=== PATIENT | female | born 1925 | race Caucasian/White ===

== ENCOUNTER 2016-11-20 12:37 | Outpatient (CLI) | payer MEDICARE, OTHER ==
[2015-08-21 12:58] VITALS: BP 150/79
== END 2016-11-20 12:47 ==
LOC: CARD 12:37
PROVIDERS: ATTEND Internal Medicine Cardiovascular Disease
DX: I25.10 Atherosclerotic heart disease of native coronary artery without angina pectoris (principal)
CPT/HCPCS: G0463

== ENCOUNTER 2017-01-03 15:46 | Outpatient (CLI) | payer MEDICARE, OTHER ==
[2015-08-21 12:58] VITALS: BP 150/79
[2017-01-03 16:11] LABS: BASOPHILS % 0.2 (0.0-1.5); EOSINOPHILS % 1.2 % (0.0-6.8); MEAN CORPUSCULAR HEMOGLOBIN 29.4 pg (28.0-34.0); NEUTROPHILS # 6.2 # k/uL (1.4-7.7)
[2017-01-03 16:31] LABS: eGFR (African) > 60; eGFR (Non-African) > 60
== END 2017-01-03 15:47 ==
LOC: LAB 15:46
PROVIDERS: ATTEND Family Medicine
DX: G45.9 Transient cerebral ischemic attack, unspecified (principal); I25.10 Atherosclerotic heart disease of native coronary artery without angina pectoris; R25.2 Cramp and spasm
CPT/HCPCS: 36415; 80053; 83735; 85025

== ENCOUNTER 2017-01-07 09:53 | Outpatient (CLI) | payer MEDICARE, OTHER ==
[2015-08-21 12:58] VITALS: BP 150/79
--- NOTE | 2017-01-07 13:58 | Diagnostic Imaging Report ---
[facility] [address] [facility] [address] [place], [place]. [address] Report Submission Date: Jan 07, 2017 11:10:57 AM CDT Patient Study Name: SHERIE RESTREPO Date: Jan 07, 2017 10:05:54 AM CDT Modality Type: CT\SR Gender: F Description: CT BRAIN W/O CONTRAST : [birth year] Institution: [facility] Physician DARLENE CURRY - OP Head CT without contrast CLINICAL HISTORY: TIA last week. TECHNIQUE: CT of the brain is performed in contiguous axial slices without the use of contrast. Sagittal and coronal reconstructions are performed by the technologist. FINDINGS: The 4th ventricle lies in a normal midline position. The ventricles and sulci are prominent secondary to atrophy. 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 There is no hypodense or hyperdense mass or intracranial hemorrhage. Visualized paranasal sinuses and the mastoid air cells are clear. Intracranial atherosclerosis is demonstrated. IMPRESSION: Atrophy. 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 Intracranial atherosclerosis. No acute intracranial changes. Electronically signed on Jan 07, 2017 11:10:57 AM CDT by: Gee ORANTES
== END 2017-01-07 09:54 ==
LOC: RAD 09:53
PROVIDERS: ATTEND Family Medicine
DX: G45.9 Transient cerebral ischemic attack, unspecified (principal)
CPT/HCPCS: 70450

== ENCOUNTER 2017-01-09 08:43 | Outpatient (CLI) | payer MEDICARE, OTHER ==
[2015-08-21 12:58] VITALS: BP 150/79
--- NOTE | 2017-01-09 23:31 | Diagnostic Imaging Report ---
DARLENE CURRY [facility] [address] [facility].[address] [address] Report Submission Date: Jan 09, 2017 10:54:09 AM CDT Patient Study Name: SHERIE RESTREPO Date: Jan 09, 2017 9:07:29 AM CDT Modality Type: US Gender: F Description: DPLX SCN XTRCRAN ART CMP TONI : [birth year] Institution: [facility] Physician: DARLENE CURRY Ultrasound carotid Doppler History: Visual disturbance, disoriented, lethargy, transient ischemic attack Findings: Spectral Doppler sonography of the carotid and vertebral arteries is performed. On the right there is mild hyperechoic plaque in the proximal internal carotid artery. Antegrade right carotid and retrograde right vertebral artery flow is observed. Doppler waveforms are otherwise normal. On the left of there is mild hyperechoic plaque in the carotid bulb and internal carotid artery origin. Antegrade left carotid and vertebral artery flow is observed with normal Doppler waveforms. Peak systolic velocities in the internal carotid arteries are 55 cm per second right and 55 left. Internal to common carotid artery ratio is 0.5 bilaterally. Impression: 1. 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 This is new since the 2014 scan. 2. Using the 2003 radiologists in ultrasound consensus conference criteria, there is no carotid stenosis. 3. Antegrade left vertebral artery flow. Electronically signed on Jan 09, 2017 10:54:09 AM CDT by: Papa ORANTES
== END 2017-01-09 08:44 ==
LOC: RAD 08:43
PROVIDERS: ATTEND Family Medicine
DX: G45.9 Transient cerebral ischemic attack, unspecified (principal)
CPT/HCPCS: 93880

== ENCOUNTER 2017-04-17 15:49 | Outpatient (CLI) | payer MEDICARE, OTHER ==
[2015-08-21 12:58] VITALS: BP 150/79
--- NOTE | 2017-04-22 12:17 | OP Clinic Progress Note ---
REASON FOR VISIT: This almost 89-year-old lady has several concerns. She picks in her nose and gets some small particles out. 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 More than likely it is associated with nasal surgery of numerous decades ago. There is a small amount of blood with it. I think her at her age, I do not think I would do any type of repair of the nasal septal perforation, nor would I recommend putting in a nasal septal button which some times can be used to close off the septal perforations. It is just not symptomatic enough, other than her picking at it, to cause a major problem at this point in time. She could use some antibiotic ointment on her fingers if she is picking at it and that might soften the edges. I have given these fairly simple ideas to her. She also complained of some right ear discomfort and had concerns when she would get her hair cleaned by the beautician whether that was bothering it. She does have dry skin built up in both ear canals but it is not really obstructed. As people age, skin gets dry and desiccated and a little hard to self-clean out of the ear canals. I cleaned both ears. The eardrums are normal. PLAN: I suggested in the right ear she might try some baby oil or mineral oil in an eye dropper just once a month to lightly soften that. If the pain persists, she could return on a p.r.n. basis. cc: Dr. Pito ORANTES
== END 2017-04-17 15:50 ==
LOC: ENT 15:49
PROVIDERS: ATTEND Otolaryngology
DX: J34.89 Other specified disorders of nose and nasal sinuses (principal)
CPT/HCPCS: G0463

== ENCOUNTER 2017-05-05 08:41 | Emergency (ER) | payer MEDICARE, OTHER ==
--- NOTE | 2017-05-05 09:02 | ED Physician Documentation ---
Upper Extremity Problem - HISTORIAN Historian: patient - HPI Chief Complaint: Shoulder Injury/ Pain Onset: days ago (yesterday) Timing: still present Recent Injury: No Where: home Severity: mild Associated Symptoms: denies: fever, chills Exacerbated By: nothing Relieved By: nothing Quality: pain (sharp) - ROS CONST: no problems - PAST HX Past History: CVA, other (CHF) Surgeries/Procedures: other (ORIF left humeral fracture) Allergies/Adverse Reactions: Allergies Allergy/AdvReac Type Severity Reaction Status Date / Time acetaminophen [From Tylenol] Allergy Verified 05/05/17 08:56 rofecoxib [From Vioxx] Allergy Verified 05/05/17 08:56 Home Medications: Ambulatory Orders Medication Instructions Recorded Cyanocobalamin (Vitamin B-12) 100 mcg PO DAILY 02/16/13 [Vitamin B-12] Ergocalciferol (Vitamin D2) 400 unit PO DAILY 02/16/13 [Vitamin D] Loratadine [Claritin] 10 mg PO DAILY 02/16/13 Franklin-3 Fatty Acids/Fish Oil [Fish 1 each PO DAILY 02/16/13 Oil 1,000 mg Capsule] Latanoprost [Xalatan] 1 drop OP DAILY 08/13/15 - SOCIAL HX Smoking History: non-smoker Alcohol Use: none Drug Use: none - FAMILY HX Family History: no significant history - VITAL SIGNS Vital Signs: Vital Signs Temp Pulse Resp BP Pulse Ox 98.3 F 77 13 163/72 97 05/05/17 09:00 05/05/17 10:02 05/05/17 09:00 05/05/17 09:00 05/05/17 10:02 - REVIEWED ASSESSMENTS Nursing Assessment Reviewed: Yes Vitals Reviewed: Yes ED Results Lab/Radiology - Lab Results Lab Results: Lab Results 05/05/17 05/05/17 05/05/17 09:48 09:48 09:48 WBC 8.20 K/ul K/ul (4.00-12.00) RBC 4.63 M/ul M/ul (3.90-5.20) Hgb 14.1 g/dL g/dL (12.0-16.0) Hct 41.8 % % (34.5-46.5) MCV 90.2 fl fl (80.0-100.0) MCH 30.4 pg pg (28.0-34.0) MCHC 33.7 g/dL g/dL (30.0-36.0) RDW 12.9 % % (11.3-14.3) Plt Count 231 K/mm3 K/mm3 (130-400) Neut % (Auto) 83.3 % H % (39.0-79.0) Lymph % (Auto) 8.7 % L % (16.0-50.0) [place] % (Auto) 5.2 % % (0.0-11.0) Eos % (Auto) 1.6 % % (0.0-6.8) Baso % (Auto) 0.3 (0.0-1.5) Neut # (Auto) 6.8 # k/uL # k/uL (1.4-7.7) Lymph # (Auto) 0.7 # k/uL # k/uL (0.6-4.0) [place] # (Auto) 0.4 # k/uL # k/uL (0.0-0.9) Eos # (Auto) 0.1 # k/uL # k/uL (0.0-0.6) Baso # (Auto) 0.0 # k/uL # k/uL (0.0-0.5) Reactive Lymphs % 0.8 % % (0.0-5.0) Reactive Lymphs # 0.1 # k/uL # k/uL (0.0-0.8) Sodium 139 mmol/L mmol/L (136-145) Potassium 4.2 mmol/L mmol/L (3.5-5.0) Chloride 107 mmol/L mmol/L (98-110) Carbon Dioxide 29 mmol/L mmol/L (20-32) BUN 13 mg/dL mg/dL (10-26) Creatinine 0.7 mg/dL mg/dL (0.4-1.5) Estimated Creat Clear 50 Est GFR ( Amer) > 60 (60 - ) Est GFR (Non-Af Amer) > 60 (60 - ) Glucose 111 mg/dL H mg/dL (70-99) Calcium 9.9 mg/dL mg/dL (8.5-10.5) Total Bilirubin 0.5 mg/dL mg/dL (0.2-1.2) AST 16 U/L U/L (0-41) ALT 9 U/L U/L (0-45) Alkaline Phosphatase 99 U/L U/L (46-116) Troponin I < 0.03 ng/mL L ng/mL (0.03-0.06) Total Protein 7.1 g/dL g/dL (6.0-8.5) Albumin 4.3 g/dL g/dL (3.0-5.5) - Orders Orders: ED Orders Category Date Time Status Continuous EKG monitoring Q30M Care 05/05/17 09:02 Active Continuous Pulse Oximetry Q30M Care 05/05/17 09:[address] IV Lock 1T Care 05/05/17 09:03 Active CHEST P.A.&LAT 2 VIEWS [RAD] Stat Exams 05/05/17 Completed CBC/PLATELET/DIFF Routine Lab 05/05/17 09:48 Completed CMP Routine Lab 05/05/17 09:48 Completed TROPONIN I (cTnI) Stat Lab 05/05/17 09:48 Completed EKG WITH COMPARISON Stat Ther 05/05/17 09:02 Ordered Upper Extremity Problem - EXAM General Appearance: no acute distress, alert Skin: warm/dry, normal color Shoulder Exam: no evidence of injury, soft tissue tenderness (posterior shoulder over trigger point). No: normal ROM (mild decrease ROM) Elbow/Forearm Exam: normal inspection, non-tender, no evidence of injury, normal ROM Wrist Exam: normal inspection, non-tender, no evidence of injury, normal ROM Hand Exam: normal inspection, non-tender, no evidence of injury, normal ROM Neuro/Tendon: normal sensation, normal motor functions CVS: reg rate & rhythm, heart sounds normal, equal pulses, no gallop Vascular: no vascular compromise Peripheral: No: sensation nml, motor nml, altered sensation Central: oriented X3, CN's nml as tested, mood/affect nml, cognition normal Respiratory: no resp. distress, breath sounds nml Discharge Clincal Impression: Trigger point of left shoulder region Referrals: Pito Cabezas MD [Primary Care Provider] - 2 Days Additional Instructions: Continue taking some Tylenol for pain. Try using a warm compress to the back area. Do some gentle stretching exercises for the shoulder. Home Medications: Ambulatory Orders Cyanocobalamin (Vitamin B-12) [Vitamin B-12] 100 mcg PO DAILY 02/16/13 Ergocalciferol (Vitamin D2) [Vitamin D] 400 unit PO DAILY 02/16/13 Loratadine [Claritin] 10 mg PO DAILY 02/16/13 Franklin-3 Fatty Acids/Fish Oil [Fish Oil 1,000 mg Capsule] 1 each PO DAILY Latanoprost [Xalatan] 1 drop OP DAILY 08/13/15 Condition: Stable Disposition: 01 HOME, SELF-CARE Decision to Admit: NO Date of Decison to Admit: 05/05/17 Decision Time: 10:21
--- NOTE | 2017-05-05 09:39 | Diagnostic Imaging Report ---
[facility] [address] [facility].[address] [address] Report Submission Date: May 05, 2017 9:37:42 AM CDT Patient Study Name: SHERIE RESTREPO Date: May 05, 2017 9:19:07 AM CDT Modality Type: CR Gender: F Description: CHEST : [birth year] Institution: [facility] Physician: DARLENE CURRY HISTORY: 89-year-old female with left shoulder pain and cough. COMPARISON: None available. TECHNIQUE: 2 views of the chest were performed. FINDINGS: There is a right basilar infiltrate. There are calcified granulomas in both lungs. No pneumothorax or pulmonary edema. Question emphysematous changes. The heart is not enlarged. The aortic arch is calcific. There is thoracic spondylosis and exaggerated thoracic kyphosis. There are postoperative changes of left proximal humeral fixation. IMPRESSION: 1. Right basilar infiltrate may represent pneumonia or scarring. 2. 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 3. Postoperative changes of left proximal humeral fixation. Electronically signed on May 05, 2017 9:37:42 AM CDT by: Domenic ORANTES
[2017-05-05 09:55] LABS: BASOPHILS % 0.3 (0.0-1.5); EOSINOPHILS % 1.6 % (0.0-6.8); MEAN CORPUSCULAR HEMOGLOBIN 30.4 pg (28.0-34.0); MEAN CORPUSCULAR VOLUME 90.2 fl (80.0-100.0); MONOCYTES % 5.2 % (0.0-11.0); NEUTROPHILS # 6.8 # k/uL (1.4-7.7)
[2017-05-05 10:13] LABS: eGFR (African) > 60; eGFR (Non-African) > 60
[2017-05-05 10:35] VITALS: BP 152/69
== END 2017-05-05 10:33 | disposition home or self-care (01) ==
LOC: ED 08:41
DX: M25.512 Pain in left shoulder (principal); R05 Cough
CPT/HCPCS: 71020; 80053; 84484; 85025; 99283; S1016

== ENCOUNTER 2017-06-04 12:31 | Outpatient (CLI) | payer MEDICARE, OTHER | END 2017-06-04 12:32 | LOC: CARD 12:31 | PROVIDERS: ATTEND Internal Medicine Cardiovascular Disease | DX: I25.10 Atherosclerotic heart disease of native coronary artery without angina pectoris (principal); Z86.73 Personal history of transient ischemic attack (TIA), and cerebral infarction without residual deficits | CPT/HCPCS: G0463 ==